=== PATIENT | male | born 1955 | race Caucasian/White ===

== ENCOUNTER 2019-03-22 10:43 | Emergency (ER) | payer MEDICARE ==
--- NOTE | 2019-03-22 11:05 | EDM.PDOC ---
ED HPI GENERAL MEDICAL PROBLEM - General Chief Complaint: Abdominal Pain Stated Complaint: ABDOMINAL PAIN Time Seen by Provider: 03/22/19 10:48 Source of Information: Reports: Patient History Limitations: Reports: No Limitations - History of Present Illness INITIAL COMMENTS - FREE TEXT/NARRATIVE: Patient is a 63-year-old male who is complaining of having left abdominal to flank pain that is been ongoing for the last several months. Patient is describes this is 10 out of 10 in intensity without any radiation. Pain is constant and is not worse with eating or movement but is worse when he touches the area. His pain seems to be in the area of his previous splenectomy scar. He denies any bloody or tarry stools or any dysuria or hematuria. Taken nothing for his current symptoms and his symptoms are not worse today but he has a day off and wants to find out what is causing his pain. He has had no fever or chills. No other abdominal surgeries besides previous splenectomy for splenomegaly. Duration: Chronic. No: Getting Worse Location: Reports: Abdomen Quality: Reports: Ache, Throbbing Severity: Severe Improves with: Reports: None Worsens with: Reports: Movement Associated Symptoms: Reports: No Other Symptoms left side abd Pain Score (Numeric/FACES): 10 - Related Data Allergies Allergy/AdvReac Type Severity Reaction Status Date / Time No Known Allergies Allergy Verified 03/22/19 10:55 Home Meds: Home Meds Aspirin 1 tab PO 03/22/19 [History] ED ROS GENERAL - Review of Systems Review Of Systems: See Below Constitutional: Reports: No Symptoms Respiratory: Reports: No Symptoms Cardiovascular: Reports: No Symptoms Endocrine: Reports: No Symptoms GI/Abdominal: Reports: Abdominal Pain. Denies: Anorexia, Bloody Stool, Diarrhea , Decreased Appetite, Distension, Nausea, Vomiting : Reports: No Symptoms. Denies: Dysuria, Flank Pain, Hematuria Musculoskeletal: Reports: No Symptoms Skin: Reports: No Symptoms Neurological: Reports: No Symptoms Psychiatric: Reports: No Symptoms ED EXAM, GI/ABD - Physical Exam Exam: See Below General Appearance: Alert, No Apparent Distress Head: Atraumatic, Normocephalic Neck: Normal Inspection, Supple, Non-Tender Respiratory/Chest: No Respiratory Distress Cardiovascular: Regular Rate, Rhythm, No JVD GI/Abdominal Exam: Normal Bowel Sounds, No Organomegaly, No Distention, Tender. No: Distended, Guarding, Rigid, Rebound, Hepatomegaly, Splenomegaly Back Exam: Normal Inspection Extremities: Normal Inspection Neurological: Alert Psychiatric: Normal Affect Skin Exam: Warm Lymphatic: No Adenopathy Course - Vital Signs Last Recorded V/S: Last Vital Signs Temp 36.0 C 03/22/19 10:56 Pulse 79 03/22/19 10:56 Resp 17 03/22/19 10:56 BP 137/88 03/22/19 10:56 Pulse Ox 93 L 03/22/19 10:56 - Orders/Labs/Meds Orders: Active Orders 24 hr Category Date Time Status Sodium Chloride 0.9% [Saline Flush] Med 03/22/19 11:07 Active 10 ml FLUSH ASDIRECTED PRN Sodium Chloride 0.9% [Saline Flush] Med 03/22/19 11:07 Active 2.5 ml FLUSH ASDIRECTED PRN Saline Lock Insert [OM.PC] Stat Oth 03/22/19 11:07 Ordered Medication Orders Sodium Chloride (Saline Flush) 10 ml FLUSH ASDIRECTED PRN PRN Reason: Keep Vein Open Last Admin: 03/22/19 11:19 Dose: 10 ml Sodium Chloride (Saline Flush) 2.5 ml FLUSH ASDIRECTED PRN PRN Reason: Keep Vein Open Last Admin: 03/22/19 11:19 Dose: 2.5 ml Labs: Laboratory Tests 03/22/19 03/22/19 03/22/19 Range/Units 11:24 11:24 13:44 WBC 14.36 H (4.0-11.0) K/uL RBC 5.06 (4.50-5.90) M/uL Hgb 16.2 (13.0-17.0) g/dL Hct 46.9 (38.0-50.0) % MCV 92.7 (80.0-98.0) fL MCH 32.0 (27.0-32.0) pg MCHC 34.5 (31.0-37.0) g/dL RDW Std Deviation 47.4 (28.0-62.0) fl RDW Coeff of Reyes 14 (11.0-15.0) % Plt Count 278 (150-400) K/uL MPV 12.50 H (7.40-12.00) fL Neut % (Auto) 52.1 (48.0-80.0) % Lymph % (Auto) 36.6 (16.0-40.0) % Dickens % (Auto) 8.6 (0.0-15.0) % Eos % (Auto) 2.1 (0.0-7.0) % Baso % (Auto) 0.6 (0.0-1.5) % Neut # (Auto) 7.5 H (1.4-5.7) K/uL Lymph # (Auto) 5.3 H (0.6-2.4) K/uL Dickens # (Auto) 1.2 H (0.0-0.8) K/uL Eos # (Auto) 0.3 (0.0-0.7) K/uL Baso # (Auto) 0.1 (0.0-0.1) K/uL Nucleated RBC % 0.0 /100WBC Nucleated RBCs # 0 K/uL Sodium 137 (136-148) mmol/L Potassium 4.4 (3.5-5.1) mmol/L Chloride 104 (98-107) mmol/L Carbon Dioxide 22.5 (21.0-32.0) mmol/L BUN 14 (7.0-18.0) mg/dL Creatinine 0.9 (0.8-1.3) mg/dL Est Cr Clr Drug Dosing 93.41 mL/min Estimated GFR (MDRD) > 60.0 ml/min Glucose 97 (74-106) mg/dL Calcium 8.9 (8.5-10.1) mg/dL Total Bilirubin 0.5 (0.2-1.0) mg/dL AST 21 (15-37) IU/L ALT 28 (14-63) IU/L Alkaline Phosphatase 88 (46-116) U/L Total Protein 8.4 H (6.4-8.2) g/dL Albumin 4.2 (3.4-5.0) g/dL Globulin 4.2 H (2.6-4.0) g/dL Albumin/Globulin Ratio 1.0 (0.9-1.6) Lipase 117 (73-393) U/L Urine Color YELLOW Urine Appearance CLEAR Urine pH 6.0 (5.0-8.0) Ur Specific [place] 1.010 (1.001-1.035) Urine Protein NEGATIVE (NEGATIVE) mg/dL Urine Glucose (UA) NEGATIVE (NEGATIVE) mg/dL Urine Ketones NEGATIVE (NEGATIVE) mg/dL Urine Occult Blood NEGATIVE (NEGATIVE) Urine Nitrite NEGATIVE (NEGATIVE) Urine Bilirubin NEGATIVE (NEGATIVE) Urine Urobilinogen 0.2 (<2.0) EU/dL Ur Leukocyte Esterase NEGATIVE (NEGATIVE) Urine RBC NONE SEEN (0-2/HPF) Urine WBC 1-2 (0-5/HPF) Ur Epithelial Cells NOT SEEN (NONE-FEW) Urine Bacteria RARE (NEGATIVE) Urine Mucus RARE (NONE-MOD) Meds: Medications Generic Name Dose Route Start Last Admin Trade Name Freq PRN Reason Stop Dose Admin Sodium Chloride 10 ml 03/22/19 11:07 03/22/19 11:19 Saline Flush FLUSH 10 ml ASDIRECTED PRN Administration Keep Vein Open Sodium Chloride 2.5 ml 03/22/19 11:07 03/22/19 11:19 Saline Flush FLUSH 2.5 ml ASDIRECTED PRN Administration Keep Vein Open Discontinued Medications Generic Name Dose Route Start Last Admin Trade Name Freq PRN Reason Stop Dose Admin Sodium Chloride 1,000 mls @ 999 mls/hr 03/22/19 11:07 03/22/19 11:19 Normal Saline IV 03/22/19 12:07 999 mls/hr BOLUS ONE Administration Iopamidol 100 ml 03/22/19 12:39 03/22/19 12:39 Isovue Multipack-370 (76%) IVPUSH 03/22/19 12:40 100 ml ONETIME STA Administration Ketorolac Tromethamine 30 mg 03/22/19 11:07 03/22/19 11:18 Toradol IVPUSH 03/22/19 11:08 30 mg ONETIME ONE Administration - Re-Assessments/Exams Free Text/Narrative Re-Assessment/Exam: 03/22/19 14:[address] scan shows a possible inflammatory changes on the left lateral abdomen not consistent with diverticulitis. White blood cell count is mildly elevated at 14 and the rest of his labs are normal. CT scan was discussed with radiologist. Patient's pain is been present for approximately 4 months discharging him with some pain medicine at this time and recommend he follow-up with a surgeon for recheck if symptoms continue. He may return to ER anytime for any fever chills vomiting or worse pain. Departure - Departure Time of Disposition: 14:23 Disposition: Home, Self-Care 01 Condition: Good Clinical Impression: Abdominal pain - Discharge Information Referrals: PCP,Not In Area [Primary Care Provider] - Forms: ED Department Discharge Additional Instructions: [place] with meals. [place] as needed. Follow-up with general surgeon for recheck if symptoms continue. Return to ER anytime symptoms are worse. The following information is given to patients seen in the emergency department who are being discharged to home. This information is to outline your options for follow-up care. We provide all patients seen in our emergency department with a follow-up referral. The need for follow-up, as well as the timing and circumstances, are variable depending upon the specifics of your emergency department visit. If you don't have a primary care physician on staff, we will provide you with a referral. We always advise you to contact your personal physician following an emergency department visit to inform them of the circumstance of the visit and for follow-up with them and/or the need for any referrals to a consulting specialist. The emergency department will also refer you to a specialist when appropriate. This referral assures that you have the opportunity for follow-up care with a specialist. All of these measure are taken in an effort to provide you with optimal care, which includes your follow-up. Under all circumstances we always encourage you to contact your private physician who remains a resource for coordinating your care. When calling for follow-up care, please make the office aware that this follow-up is from your recent emergency room visit. If for any reason you are refused follow-up, please contact the [facility] Emergency Department at and asked to speak to the emergency department charge nurse. Sepsis Event Note - Focused Exam Vital Signs: Vital Signs Temp Pulse Resp BP Pulse Ox 03/22/19 10:56 36.0 C 79 17 137/88 93 L Date Exam was Performed: 03/22/19 Time Exam was Performed: 14:19 - My Orders Last 24 Hours: My Active Orders 03/22/19 11:07 Sodium Chloride 0.9% [Saline Flush] 10 ml FLUSH ASDIRECTED PRN Sodium Chloride 0.9% [Saline Flush] 2.5 ml FLUSH ASDIRECTED PRN Saline Lock Insert [OM.PC] Stat - Assessment/Plan Last 24 Hours: My Active Orders 03/22/19 11:07 Sodium Chloride 0.9% [Saline Flush] 10 ml FLUSH ASDIRECTED PRN Sodium Chloride 0.9% [Saline Flush] 2.5 ml FLUSH ASDIRECTED PRN Saline Lock Insert [OM.PC] Stat
[2019-03-22] MEDS ORDERED: Sodium Chloride 0.9% 10 ML Syringe FLUSH PRN (11:07)
[2019-03-22] MEDS ORDERED: Sodium Chloride 0.9% 2.5 ML Syringe FLUSH PRN (11:07)
[2019-03-22] MEDS ORDERED: Sodium Chloride 0.9% 1,000 ML IV ONE (11:07)
[2019-03-22] MEDS ORDERED: Ketorolac 30 MG/ML SDV IVPUSH ONE (11:07)
[2019-03-22 12:01] LABS: BLOOD UREA NITROGEN,BUN 14 mg/dL (7.0-18.0); CARBON DIOXIDE,CO2 22.5 mmol/L (21.0-32.0); CHLORIDE,CL 104 mmol/L (98-107); GLUCOSE RANDOM 97 mg/dL (74-106); LIPASE 117 U/L (73-393); POTASSIUM,K 4.4 mmol/L (3.5-5.1); SODIUM,NA 137 mmol/L (136-148)
[2019-03-22] MEDS ORDERED: Iopamidol 755 MG/ML 500 ML Multipack Bottle IVPUSH STA (12:39)
--- NOTE | 2019-03-22 13:21 | CT ---
Addendum: CT abdomen and pelvis study was reviewed which show slight inflammatory change along the antimesenteric side of the descending colon. These findings are most likely due to mild inflammatory change from so-called epiploic appendagitis. --- Addendum1 above dictated on [03/22/2019 13:19] by [Shruthi Mancini, Josue Cuellar] --- --- Addendum1 above signed on [03/22/2019 13:20] by [Shruthi Mancini Hilton J.] --- --- Original report below dictated on [03/22/2019 12:13] by [Shruthi Mancini Hilton J.] --- --- Original report below signed on [03/22/2019 12:14] by [Shruthi Mancini, Josue Cuellar] --- CT abdomen and pelvis Technique: Multiple axial sections were obtained from above the dome of the diaphragm inferiorly through the pubic symphysis. Intravenous contrast was utilized. No oral contrast has been given. Our Findings: Metallic densities seen within the left upper abdomen. Normal spleen is not seen presumably due to previous splenectomy with small amount of accessory splenic tissue being seen in this area. Interstitial change is noted within both lung bases most likely representing fibrosis. Liver contains no focal abnormality. Adrenal gland on the right and left side appear within normal limits. Cyst is noted within the upper right kidney measuring 4.9 cm. Kidneys show no hydronephrosis. No solid abnormality is appreciated within the kidneys. Pancreas is within normal limits. Aorta shows no aneurysm. No retroperitoneal adenopathy or mesenteric abnormalities are seen. No pelvic mass or adenopathy is seen. No free fluid or inflammatory change is seen within the abdomen or within the pelvis. Appendix is felt to be visualized and is normal in size. Sigmoid diverticuli are seen without inflammatory change of diverticulitis. Bone window settings were reviewed. Vacuum phenomena noted within the sacroiliac joints. Mild degenerative change is scattered within the spine. Impression: 1. Findings believed to be incidental as noted above. 2. Nothing acute is appreciated on CT study of the abdomen and pelvis. Diagnostic code #2 This report was dictated in [place] Standard Time --- Addendum1 signed ---
== END 2019-03-22 14:45 | disposition home or self-care (01) ==
LOC: MW.ED 10:43
DX: R10.9 Unspecified abdominal pain (principal); Z79.82 Long term (current) use of aspirin
CPT/HCPCS: 36415; 74177; 80053; 81001; 83690; 85025; 96361; 96374; 99284; J1885; J7030; Q9967

== ENCOUNTER 2019-08-30 07:05 | Emergency (ER) | payer OTHER, MEDICARE ==
[2019-08-30] MEDS ORDERED: Sodium Chloride 0.9% 10 ML Syringe FLUSH PRN (07:46)
[2019-08-30] MEDS ORDERED: Sodium Chloride 0.9% 10 ML SDV IV PRN (07:46)
[2019-08-30] MEDS ORDERED: Labetalol 100 MG/20 ML MDV IVPUSH ONE (07:46)
[2019-08-30] MEDS ORDERED: Sodium Chloride 0.9% 2.5 ML Syringe FLUSH PRN (07:46)
[2019-08-30] MEDS ORDERED: Prochlorperazine 10 MG Tab PO ONE (07:48)
--- NOTE | 2019-08-30 08:03 | EDM.PDOC ---
ED [facility] GENERAL MEDICAL PROBLEM - General Chief Complaint: Neuro Symptoms/Deficits Stated Complaint: STROKE Time Seen by Provider: 08/30/19 07:15 - History of Present Illness INITIAL COMMENTS - FREE TEXT/NARRATIVE: HISTORY AND PHYSICAL: History of present illness: This 64-year-old male with a past medical history of IV drug abuse (remote), tobacco dependence, social drinking and yesterday while driving around or just after 3 PM he had a sudden onset of visual change in the right eye, headache facial numbness and some right-sided weakness. The weakness in upper extremity went away. He did not notice any lower extremity changes. But he still has a headache and some facial numbness. He denies that his vision is still abnormal. Last time known well was yesterday at 3 PM. He is a smoker and smokes 1-1/2 packs a day times the last 50 years. Social alcohol use. Denies any other associated signs or symptoms. No other modifying, aggravating or alleviating factors. Review of systems: A 10-point review of systems, other than pertinent positives and negatives as stated per HPI, is otherwise negative. Past medical history: As per history of present illness and as reviewed below otherwise noncontributory. Surgical history: As per history of present illness and as reviewed below otherwise noncontributory. Social history: No reported history of drug or alcohol abuse. Family history: As per history of present illness and as reviewed below otherwise noncontributory. Physical exam: VITAL SIGNS: Reviewed. GENERAL: And working close. Slightly disheveled. Large gardner. Tobacco staining on the left side of his jade gardner and mustache. HEAD: No signs of head trauma. EYES: Pupils are equal. Extraocular motions intact. EARS: Hearing grossly intact. MOUTH: Oropharynx is normal. NECK: No adenopathy, no JVD. CHEST: Chest with clear breath sounds bilaterally. No wheezes, rales, or rhonchi. CARDIAC: Regular rate and rhythm. Normal S1 and S2, without murmurs, gallops, or rubs. VASCULAR: Peripheral pulses normal and equal in all extremities. ABDOMEN: Soft, without detectable tenderness. No sign of distention. No rebound or guarding, and no masses palpated. MUSCULOSKELETAL: Good range of motion of all major joints. Extremities without clubbing, cyanosis or edema. NEUROLOGIC EXAM: Alert and oriented x 3. Cranial nerves II through XII are intact other than right-sided facial anesthesia. Slight suggestion of a right- sided facial droop at rest. Not present on muscle use. Speech normal. Follows commands. No dysmetria. Walks on heels without difficulty. Walks on tippy toes without difficulty. PSYCHIATRIC: Calm. Intermittently onrey. SKIN: No rash or lesions. Initial Differential Diagnosis & Plan: Stroke, Cary's palsy, atypical migraine, mass lesion I will screen for electrolyte abnormalities, anemia, infectious etiologies, with labs, chest x-ray and head CT. I would prefer to do an MRI in this patient as he is greater than 12 hours out from his stroke symptoms. I think that would be the most beneficial. There may be some delay in getting the MRI about 1 PM today. Definitive disposition and diagnosis as appropriate pending reevaluation and review of above. headache Pain Score (Numeric/FACES): 2 - Related Data Allergies Allergy/AdvReac Type Severity Reaction Status Date / Time No Known Allergies Allergy Verified 08/30/19 07:45 Home Meds: Home Meds Aspirin [Aspirin EC] 325 mg PO QAM #60 tablet. 08/30/19 [Rx] Past Medical History Musculoskeletal History: Reports: Back Pain, Chronic, Fracture - Past Surgical History Other GI Surgeries/Procedures: splenectomy Musculoskeletal Surgical History: Reports: Carpal Tunnel Social & Family History - Family History Family Medical History: Noncontributory - Tobacco Use Smoking Status *Q: Current Every Day Smoker Years of Tobacco use: 50 Packs/Tins Daily: 1.5 - Caffeine Use Caffeine Use: Reports: None - Recreational Drug Use Recreational Drug Use: No ED ROS GENERAL - Review of Systems Review Of Systems: See Below (noted) ED EXAM, NEURO - Physical Exam Exam: See Below (noted) EKG INTERPRETATION EKG Interpretation Comments: 12 lead EKG interpretation Obtained: August 30, 2019 at 9:11 AM Rhythm: Sinus bradycardia Rate: 49 [place]: Normal Intervals: Normal ST/T Segments: No acute ischemic changes Interpretation: Sinus bradycardia Course - Vital Signs Last Recorded V/S: Last Vital Signs Temp 97.0 F 08/30/19 07:33 Pulse 59 L 08/30/19 09:11 Resp 16 08/30/19 07:33 BP 124/81 08/30/19 09:11 Pulse Ox 96 08/30/19 09:11 - Orders/Labs/Meds Orders: Active Orders 24 hr Category Date Time Status Assess Neurological Status [RC] ASDIRECTED Care 08/30/19 07:46 Active Cardiac Monitoring [RC] . DIRECTED Care 08/30/19 07:46 Active EKG Documentation Completion [RC] STAT Care 08/30/19 07:46 Active Height and Weight [RC] UPON Care 08/30/19 07:46 Active NIH Stroke Scale [RC] ASDIRECTED Care 08/30/19 07:46 Active Stroke Education, General [] Click to Edit Care 08/30/19 07:46 Active Sodium Chloride 0.9% [Normal Saline] Med 08/30/19 07:46 Active 10 ml IV ASDIRECTED PRN Sodium Chloride 0.9% [Saline Flush] Med 08/30/19 07:46 Active 10 ml FLUSH ASDIRECTED PRN Sodium Chloride 0.9% [Saline Flush] Med 08/30/19 07:46 Active 2.5 ml FLUSH ASDIRECTED PRN Peripheral IV Insertion Adult [OM.PC] Stat Oth 08/30/19 07:46 Ordered Peripheral IV Insertion Adult [OM.PC] Stat Ot 08/30/19 07:46 Ordered Medication Orders Sodium Chloride (Saline Flush) 10 ml FLUSH ASDIRECTED PRN PRN Reason: Keep Vein Open Last Admin: 08/30/19 08:01 Dose: 10 ml Sodium Chloride (Saline Flush) 2.5 ml FLUSH ASDIRECTED PRN PRN Reason: Keep Vein Open Last Admin: 08/30/19 08:01 Dose: 2.5 ml Sodium Chloride (Normal Saline) 10 ml IV ASDIRECTED PRN PRN Reason: IV Use Labs: Laboratory Tests 08/30/19 08/30/19 08/30/19 Range/Units 08:08 08:08 08:08 WBC 12.23 H (4.0-11.0) K/uL RBC 4.70 (4.50-5.90) M/uL Hgb 14.9 (13.0-17.0) g/dL Hct 44.9 (38.0-50.0) % MCV 95.5 (80.0-98.0) fL MCH 31.7 (27.0-32.0) pg MCHC 33.2 (31.0-37.0) g/dL RDW Std Deviation 49.5 (28.0-62.0) fl RDW Coeff of Reyes 14 (11.0-15.0) % Plt Count 259 (150-400) K/uL MPV 12.70 H (7.40-12.00) fL Neut % (Auto) 35.5 L (48.0-80.0) % Lymph % (Auto) 48.2 H (16.0-40.0) % [place] % (Auto) 11.1 (0.0-15.0) % Eos % (Auto) 4.1 (0.0-7.0) % Baso % (Auto) 1.1 (0.0-1.5) % Neut # (Auto) 4.3 (1.4-5.7) K/uL Lymph # (Auto) 5.9 H (0.6-2.4) K/uL Crosby # (Auto) 1.4 H (0.0-0.8) K/uL Eos # (Auto) 0.5 (0.0-0.7) K/uL Baso # (Auto) 0.1 (0.0-0.1) K/uL Nucleated RBC % 0.0 /100WBC Nucleated RBCs # 0 K/uL INR 0.98 APTT 27.3 (18.6-31.3) SEC Sodium 137 (136-148) mmol/L Potassium 4.3 (3.5-5.1) mmol/L Chloride 104 (98-107) mmol/L Carbon Dioxide 24.2 (21.0-32.0) mmol/L BUN 24 H (7.0-18.0) mg/dL Creatinine 1.0 (0.8-1.3) mg/dL Est Cr Clr Drug Dosing 78.07 mL/min Estimated GFR (MDRD) > 60.0 ml/min Glucose 105 (74-106) mg/dL Calcium 8.0 L (8.5-10.1) mg/dL Total Bilirubin 0.3 (0.2-1.0) mg/dL AST 18 (15-37) IU/L ALT 19 (14-63) IU/L Alkaline Phosphatase 86 (46-116) U/L Troponin I < 0.050 (0.000-0.056) ng/mL Total Protein 7.5 (6.4-8.2) g/dL Albumin 3.7 (3.4-5.0) g/dL Globulin 3.8 (2.6-4.0) g/dL Albumin/Globulin Ratio 1.0 (0.9-1.6) TSH 3rd Generation 0.69 (0.36-3.74) uIU/mL Meds: Medications Generic Name Dose Route Start Last Admin Trade Name Freq PRN Reason Stop Dose Admin Sodium Chloride 10 ml 08/30/19 07:46 08/30/19 08:01 Saline Flush FLUSH 10 ml ASDIRECTED PRN Administration Keep Vein Open Sodium Chloride 2.5 ml 08/30/19 07:46 08/30/19 08:01 Saline Flush FLUSH 2.5 ml ASDIRECTED PRN Administration Keep Vein Open Sodium Chloride 10 ml 08/30/19 07:46 Normal Saline IV ASDIRECTED PRN IV Use Discontinued Medications Generic Name Dose Route Start Last Admin Trade Name Freq PRN Reason Stop Dose Admin Labetalol HCl 20 mg 08/30/19 07:46 08/30/19 08:01 Normodyne IVPUSH 08/30/19 07:47 20 mg ONETIME ONE Administration Protocol Prochlorperazine Maleate 10 mg 08/30/19 07:48 08/30/19 08:01 Compazine PO 08/30/19 07:49 10 mg ONETIME ONE Administration - Re-Assessments/Exams Free Text/Narrative Re-Assessment/Exam: 08/30/19 09:[address] and MRI are essentially normal. No evidence of an acute ischemic stroke. Given the symptoms and the work-up I feel the patient most likely had a TIA. We will start him on daily aspirin. Referral to internal medicine clinic. My diagnostic impression: 1. TIA with resolved symptoms Departure - Departure Time of Disposition: 09:52 Disposition: Home, Self-Care 01 Clinical Impression: TIA (transient ischemic attack) - Discharge Information *PRESCRIPTION DRUG MONITORING PROGRAM REVIEWED*: Not Applicable *COPY OF PRESCRIPTION DRUG MONITORING REPORT IN PATIENT RUFINO: Not Applicable Referrals: PCP,None [Primary Care Provider] - [facility] [Outside] Forms: ED Department Discharge Additional Instructions: The following information is given to patients seen in the emergency department who are being discharged to home. This information is to outline your options for follow-up care. We provide all patients seen in our emergency department with a follow-up referral. The need for follow-up, as well as the timing and circumstances, are variable depending upon the specifics of your emergency department visit. If you don't have a primary care physician on staff, we will provide you with a referral. We always advise you to contact your personal physician following an emergency department visit to inform them of the circumstance of the visit and for follow-up with them and/or the need for any referrals to a consulting specialist. The emergency department will also refer you to a specialist when appropriate. This referral assures that you have the opportunity for follow-up care with a specialist. All of these measure are taken in an effort to provide you with optimal care, which includes your follow-up. Under all circumstances we always encourage you to contact your private physician who remains a resource for coordinating your care. When calling for follow-up care, please make the office aware that this follow-up is from your recent emergency room visit. If for any reason you are refused follow-up, please contact the [facility] Emergency Department at and asked to speak to the emergency department charge nurse. Your MRI and CT scan today are normal. There is no evidence of an acute stroke. Your symptoms are consistent with a TIA. This is a transient ischemic attack which is a mini stroke. Please take the aspirin every day and follow-up with your doctor for more outpatient testing. [facility] - Internal Medicine [address] [place] [id number] Sepsis Event Note - Evaluation Sepsis Screening Result: No Definite Risk - Focused Exam Vital Signs: Vital Signs Temp Pulse Resp BP Pulse Ox 08/30/19 09:11 59 L 124/81 96 08/30/19 08:08 66 148/88 H 98 08/30/19 07:33 97.0 F 58 L 16 172/88 H 95 Date Exam was Performed: 08/30/19 Time Exam was Performed: 09:52 - My Orders Last 24 Hours: My Active Orders 08/30/19 07:46 Assess Neurological Status [RC] ASDIRECTED Cardiac Monitoring [RC] . DIRECTED EKG Documentation Completion [RC] STAT Height and Weight [RC] UPON NIH Stroke Scale [RC] ASDIRECTED Stroke Education, General [RC] Click to Edit Sodium Chloride 0.9% [Normal Saline] 10 ml IV ASDIRECTED PRN Sodium Chloride 0.9% [Saline Flush] 10 ml FLUSH ASDIRECTED PRN Sodium Chloride 0.9% [Saline Flush] 2.5 ml FLUSH ASDIRECTED PRN Peripheral IV Insertion Adult [OM.PC] Stat Peripheral IV Insertion Adult [OM.PC] Stat - Assessment/Plan Last 24 Hours: My Active Orders 08/30/19 07:46 Assess Neurological Status [RC] ASDIRECTED Cardiac Monitoring [RC] . DIRECTED EKG Documentation Completion [RC] STAT Height and Weight [RC] UPON NIH Stroke Scale [RC] ASDIRECTED Stroke Education, General [RC] Click to Edit Sodium Chloride 0.9% [Normal Saline] 10 ml IV ASDIRECTED PRN Sodium Chloride 0.9% [Saline Flush] 10 ml FLUSH ASDIRECTED PRN Sodium Chloride 0.9% [Saline Flush] 2.5 ml FLUSH ASDIRECTED PRN Peripheral IV Insertion Adult [OM.PC] Stat Peripheral IV Insertion Adult [OM.PC] Stat
--- NOTE | 2019-08-30 08:31 | CT ---
Head CT Technique: Multiple axial sections through the brain were obtained. Intravenous contrast was not utilized. Comparison: No prior intracranial imaging is available. Findings: Ventricles along with basal cisterns and sulci over the convexities are within normal limits for the patient's age. No abnormal parenchymal densities are seen. No evidence of intracranial hemorrhage. No midline shift or mass-effect is appreciated. Bone window settings were reviewed. No acute calvarial finding is seen. Visualized paranasal sinuses and mastoid sinuses show nothing acute. Impression: 1. Nothing acute is appreciated on noncontrast head CT study. Diagnostic code #1 This report was dictated in MDT
--- NOTE | 2019-08-30 08:33 | CR ---
Chest: AP view of the chest was obtained. Comparison: No prior chest imaging is available. Heart size and mediastinum are normal. Lungs are clear with no acute parenchymal change. Surgical clips are noted within the left upper abdomen. Bony structures are grossly intact. Impression: 1. Nothing acute is identified on AP chest x-ray. Diagnostic code #1 This report was dictated in MDT
[2019-08-30 09:00] LABS: BLOOD UREA NITROGEN,BUN 24 mg/dL (7.0-18.0); CARBON DIOXIDE,CO2 24.2 mmol/L (21.0-32.0); CHLORIDE,CL 104 mmol/L (98-107); GLUCOSE RANDOM 105 mg/dL (74-106); POTASSIUM,K 4.3 mmol/L (3.5-5.1); SODIUM,NA 137 mmol/L (136-148)
--- NOTE | 2019-08-30 09:46 | MR ---
MRI brain Technique: T1 sagittal and coronal; T1, T2, FLAIR and diffusion axial Comparison: Prior head CT study of 08/30/19. Findings: Ventricles along with basal cisterns and sulci over the convexities appear within normal limits for the patient's age. No acute diffusion abnormalities are appreciated. No abnormal signal is seen within the brain parenchyma. No midline shift or mass-effect is seen. Normal signal void is seen within the major cerebral arteries within the skull base. No acute findings are seen within the mastoid or visualized paranasal sinuses. Impression: 1. Nothing acute is seen on noncontrast MRI study of the brain. Diagnostic code #1 This report was dictated in MDT
== END 2019-08-30 10:06 | disposition home or self-care (01) ==
LOC: MW.ED 07:05
DX: G45.9 Transient cerebral ischemic attack, unspecified (principal); F17.210 Nicotine dependence, cigarettes, uncomplicated
CPT/HCPCS: 36415; 70450; 70551; 71045; 80053; 84443; 84484; 85025; 85610; 85730; 93005; 96374; 99284; A9270; J3490; Q0164